=== PATIENT | male | born 1960 | race Caucasian/White ===

== ENCOUNTER → 2018-11-12 | Outpatient (CLI) | payer OTHER | LOC: CAT 12:35 | DX: Z13.6 Encounter for screening for cardiovascular disorders (principal); E78.00 Pure hypercholesterolemia, unspecified; Z82.49 Family history of ischemic heart disease and other diseases of the circulatory system ==

== ENCOUNTER → 2020-05-01 | Outpatient (CLI) | payer BC, OTHER | LOC: LAB 11:31 | PROVIDERS: ATTEND Nurse Practitioner | DX: R51 Headache (principal); R05 Cough; Z20.828 Contact with and (suspected) exposure to other viral communicable diseases ==